=== PATIENT | female | born 1990 | race Caucasian/White ===

== ENCOUNTER 2020-07-26 03:41 | Emergency (ER) | payer SELFPAY ==
[~2020-07-26] VITALS: Ht 154.9 cm; Wt 51.3 kg
[2020-07-26] MEDS ORDERED: KETOROLAC TROMETHAMINE 30 MG/ML VIAL IV STA (04:18)
[2020-07-26] MEDS ORDERED: FAMOTIDINE 20 MG/2 ML VIAL IV STA (04:18)
[2020-07-26] MEDS ORDERED: ALBUTEROL SULFATE HFA 8GM INHALATION AEROSOL INH ONE (04:30)
[2020-07-26] MEDS ORDERED: SODIUM CHLORIDE 0.9% 1000ML 1,000 ML IV SCH (04:30)
[2020-07-26] MEDS ORDERED: KETOROLAC TROMETHAMINE 30 MG/ML VIAL ONE (04:34)
[2020-07-26] MEDS ORDERED: SODIUM CHLORIDE 0.9% 1000ML 1,000 ML ONE (04:34)
[2020-07-26] MEDS ORDERED: FAMOTIDINE 20 MG/2 ML VIAL IV ONE (04:34)
[2020-07-26 05:58] VITALS: BP 111/84
== END 2020-07-26 05:58 | disposition home or self-care (01) ==
LOC: FSED 03:46
DX: R06.02 Shortness of breath (principal); F41.9 Anxiety disorder, unspecified; Z87.11 Personal history of peptic ulcer disease
CPT/HCPCS: 71046; 81003; 81025; 96374; 96376; 99284; J1885; J7030